=== PATIENT | female | born 1945 | race Caucasian/White ===

== ENCOUNTER 2018-11-30 15:29 | Emergency (ER) | payer MEDICARE, BC ==
--- NOTE | 2018-11-30 17:32 | RAD ---
2 views chest: 11/30/2018 COMPARISON: None HISTORY: Trauma, pain FINDINGS: No pneumothorax, pleural fluid, focal consolidation, or alveolar edema. Heart and mediastinal contours appear within normal limits. There is mild anterior wedging involving the T11 vertebral body, as seen on prior MRI performed 017. IMPRESSION: No acute findings.
--- NOTE | 2018-11-30 17:36 | RAD ---
2 views of the sternum: 11/30/2018 COMPARISON: None HISTORY: Trauma, pain FINDINGS: No fracture or dislocation. No radiopaque foreign body or subcutaneous gas. IMPRESSION: No acute findings.
== END 2018-11-30 17:48 | disposition home or self-care (01) ==
LOC: SCSER 15:29
DX: S20.219A Contusion of unspecified front wall of thorax, initial encounter (principal); V49.9XXA Car occupant (driver) (passenger) injured in unspecified traffic accident, initial encounter
CPT/HCPCS: 71046; 71120

== ENCOUNTER 2020-06-21 08:44 | Outpatient (CLI) | payer MEDICARE, BC | END 2020-06-21 08:45 | disposition home or self-care (01) | LOC: BICRAD 08:44 | PROVIDERS: ATTEND Family Medicine | DX: M79.671 Pain in right foot (principal); M19.071 Primary osteoarthritis, right ankle and foot ==